=== PATIENT | female | born 1925 | race Asian ===

== ENCOUNTER 2017-01-15 20:16 | Emergency (ER) | payer MEDICARE, OTHER ==
[~2017-01-15] VITALS: Ht 160 cm; Wt 54.4 kg
[~2017-01-15 20:16] MED LIST: ASPI-535 PO; ASPI-676; CALC1TAB37 PO; CARV3.1260 PO; CENTSILV PO; FERR324T6 PO; IBAN3DIS2 IV; LORA-441 PO; MECL-113 PO; METO5AMP PO; OLOP5DRO12 OP; OMEP40CA3 PO; VITAMIN D 3
[2017-01-15 20:19] VITALS: Ht 160 cm; Wt 54.4 kg
[2017-01-15] MEDS ORDERED: DONE5TAB7 PO (22:02)
[2017-01-15] MEDS ORDERED: OMEP20CA16 PO (22:02)
[2017-01-15] MEDS ORDERED: TRIA15CR55 TOP (22:03)
[2017-01-15] MEDS ORDERED: PENT400T2 PO (22:03)
--- NOTE | 2017-01-15 22:12 | ERD ---
ER Documentation Chief Complaint Chief Complaint left leg pain, swelling redness HPI The patient is a 89-year-old female, presenting to the ER because of left leg wound. She is a very poor historian and unable to tell me how long she has had it, complains of pain, denies any trauma. She denies fever, chills, neck pain, chest pain, abdominal pain. She does not smoke nor drink Past medical history: Hypertension, mitral regurgitation, depression, GERD, history of breast cancer, aortic stenosis, anxiety Past surgical history right mastectomy ROS All systems reviewed and are negative except as per history of present illness. Medications Home Meds Active Scripts Acetaminophen* (Tylenol*) 325 Mg Tablet, 2 TAB PO Q6 Y for PAIN AND OR ELEVATED TEMP, #20 TAB Prov:ELI MIRANDA MD 01/16/17 Clindamycin Hcl* (Clindamycin Hcl*) 300 Mg Capsule, 300 MG PO QID for 10 Days, CAP Prov:ELI MIRANDA MD 01/16/17 Reported Medications Triamcinolone Acetonide* (Kenalog*) 0.1%-15GM Cr, 1 APPLIC TOP BID, #1 TUB 01/15/17 Pentoxifylline* (Pentoxifylline*) 400 Mg Tablet.sa, 400 MG PO DAILY, TAB 01/15/17 Donepezil* (Donepezil*) 5 Mg Tablet, 5 MG PO DAILY, #30 TAB 01/15/17 Omeprazole* (Omeprazole*) 20 Mg Capsule.dr, 20 MG PO DAILY, #30 CAP 01/15/17 Aspirin Ec (Aspir 81) 81 Mg Tablet.dr, 81 MG PO DAILY, TAB 10/29/13 Calcium Citrate/Vitamin D3 (Citracal + D Caplet) 1 Each Tablet, 1 EACH PO BID 03/26/12 Discontinued Reported Medications Meclizine Hcl (Travel Sickness) 25 Mg Tab.chew, PO Q8H Y for NOTE, TAB.CHEW 10/29/13 Lorazepam* (Ativan*) 0.5 Mg Tablet, PO BID Y for ANXIETY, TAB 10/29/13 Metoprolol Tartrate* (Lopressor* Inj) 5 Mg/5 Ml Ampul, 25 MG PO BID 10/29/13 [Vitamin D 3] No Conflict Check, 199903/26/12 Olopatadine* (Patanol* Ophth) 5 Ml Drops, 5 ML OP Y 03/26/12 Omeprazole* (Prilosec*) 40 Mg Capsule.dr, 40 MG PO DAILY 03/26/12 Ferrous Sulfate (Ferrous Sulfate) 324 Mg Tabsr, 325 MG PO BID 03/26/12 Multivitamins/Minerals (Centrum Silver) 1 Tab Tab, 1 TAB PO DAILY 03/26/12 Carvedilol* (Carvedilol*) 3.125 Mg Tablet, 3.125 MG PO BID 03/26/12 Ibandronate Sodium (Boniva) 3 Mg/3 Ml/Box Syringekit, 3 MG IV EVERY 3 MONTHS 03/26/12 Aspirin (Frank Child) 81 Mg Chew 05/31/11 Allergies Allergies: Coded Allergies: No Known Allergy (Unverified , 01/15/17) PMhx/Soc History of Surgery: Yes (right mastectomy) Anesthesia Reaction: No Hx Neurological Disorder: No Hx Respiratory Disorders: No Hx Cardiac Disorders: Yes (HTN,MITRAL REGURGITATION) Hx Psychiatric Problems: Yes (depression) Hx Miscellaneous Medical Probl: Yes (gerd, osteoporosis, OA, diverticulosis, breast CA, dep, aortic stenosis) Hx Alcohol Use: No Hx Substance Use: No Hx Tobacco Use: No Smoking Status: Never smoker Physical Exam Vitals Vital Signs Date Time Temp Pulse Resp B/P Pulse Ox O2 Delivery O2 Flow Rate FiO2 01/15/17 23:20 98.2 79 21 115/62 98 Room Air 01/15/17 21:20 99.0 75 20 120/63 99 Room Air 01/15/17 20:19 99.0 85 20 128/60 100 Physical Exam Const: No acute distress. Head: Atraumatic. Eyes: Normal Conjunctiva. ENT: Normal External Ears, Nose and Mouth. Neck: Full range of motion. No meningismus. Resp: Clear to auscultation bilaterally. Cardio: Regular rate and rhythm. Abd: Soft, non distended, normal bowel sounds, non tender. Skin: No petechiae or rashes. Back: No midline or flank tenderness. Ext: Left leg with erythema, minimally warm to touch, mild bilateral calf tenderness. Neur: Awake and alert. No focal deficit Psych: Normal Mood and Affect. Result Diagram: 01/15/17 6614 01/15/17 9421 Results 24 hrs Laboratory Tests Test 01/15/17 23:03 01/15/17 23:58 White Blood Count 5.210^3/ul Red Blood Count 3.4210^6/ul Hemoglobin 11.2g/dl Hematocrit 34.4% Mean Corpuscular Volume 100.6fl Mean Corpuscular Hemoglobin 32.7pg Mean Corpuscular Hemoglobin Concent 32.6g/dl Red Cell Distribution Width 14.4% Platelet Count 65973^3/UL Mean Platelet Volume 11.1fl Neutrophils % 71.7% Lymphocytes % 19.5% Monocytes % 6.7% Eosinophils % 1.3% Basophils % 0.4% Nucleated Red Blood Cells % 0.0/100WBC Neutrophils # 3.810^3/ul Lymphocytes # 1.010^3/ul Monocytes # 0.410^3/ul Eosinophils # 0.110^3/ul Basophils # 0.010^3/ul Nucleated Red Blood Cells # 0.010^3/ul Prothrombin Time 12.6Sec Prothrombin Time Ratio 1.0 INR International Normalized Ratio 0.94 Activated Partial Thromboplast Time 29.9Sec Sodium Level 144mmol/L Potassium Level 3.9mmol/L Chloride Level 107mmol/L Carbon Dioxide Level 27mmol/L Anion Gap 14 Blood Urea Nitrogen 14mg/dl Creatinine 0.77mg/dl Glucose Level 130mg/dl Calcium Level 9.5mg/dl Current Medications Medications (Trade) Dose Ordered Sig/Jagdish Route PRN Reason Start Time Stop Time Status Last Admin Dose Admin Ondansetron HCl (Zofran Odt) 4 mg ONCE STAT ODT 01/16/17 00:30 01/16/17 00:32 DC 01/16/17 00:38 Acetaminophen/ Hydrocodone Bitart ([place] (5/325)) 1 tab ONCE ONCE PO 01/16/17 00:30 01/16/17 00:32 DC 01/16/17 00:38 Clindamycin HCl (Cleocin) 300 mg ONCE ONCE PO 01/16/17 01:30 01/16/17 01:31 Procedures/[place] [address] Radiology Main Line: [phone] DIAGNOSTIC IMAGING REPORT Patient: JIMMY WILSON : 1925 Age: 89 Sex: F MR #: [id number] DOS: 01/15/172242 Ordering MD: ELI MIRANDA MD Location: E/R Room/Bed: PROCEDURE: XR tibia / fibula. CLINICAL INDICATION: Trauma. TECHNIQUE: AP and lateral views of the left tibia/fibula were performed. COMPARISON: There are no similar studies submitted for comparison. FINDINGS: There is normal bone mineralization.There is no acute fracture or dislocation.No osseous lesion is identified. IMPRESSION: No acute fracture or subluxation. RPTAT: HIKT .Bry Baez MD, Date Time Electronically viewed and signed by .Bry Baez MD, MD on 01/16/2017 00:55 .T/ CC: ELI MIRANDA MD [place] [address] Radiology Main Line: [phone] DIAGNOSTIC IMAGING REPORT Patient: JIMMY WILSON : 1925 Age: 89 Sex: F MR #: [id number] DOS: 01/15/172242 Ordering MD: ELI MIRANDA MD Location: E/R Room/Bed: PROCEDURE: US bilateral lower extremity venous Doppler CLINICAL INDICATION: Bilateral swelling TECHNIQUE: Multiple sonographic images of the bilateral lower extremity deep venous system was obtained utilizing grayscale, color-flow, compressive sonography and Doppler imaging with augmentation. COMPARISON: There are no similar studies submitted for comparison. FINDINGS: There is normal compressibility and flow within the left common femoral, superficial femoral, popliteal, and calf veins. There is normal compressibility and flow within the right common femoral, superficial femoral, popliteal, and calf veins. IMPRESSION: No evidence of DVT within the lower extremities. RPTAT: HIKT .Bry Baez MD, MD Date Time Electronically viewed and signed by .Bry Baez MD, MD on 01/15/2017 23:18 .T/ CC: ELI MIRANDA MD MEDICAL MAKING DECISION: The patient is a 89-year-old female, presenting with acute left leg cellulitis. She was treated with [place] 5 mg p.o. for pain, Zofran ODT for nausea and clindamycin for cellulitis with good response. The differential diagnoses considered include but are not limited to cellulitis , abscess, necrotizing fasciitis, DVT Departure Diagnosis: Primary Impression: Cellulitis of leg, left Additional Impression: Anemia Condition: Good Comments She was discharged with clindamycin and Tylenol I discussed the findings with the patient. I advised the patient to follow-up with the primary physician in about 1-2 days, sooner if needed and return if any concern. Disclaimer: Inadvertent spelling and grammatical errors are likely due to EHR/ dictation software use and do not reflect on the overall quality of patient care. Also, please note that the electronic time recorded on this note does not necessarily reflect the actual time of the patient encounter. ELI MIRANDA MD Jan 15, 2017 22:12
--- NOTE | 2017-01-15 22:12 | ERD ---
ER Documentation Chief Complaint Chief Complaint left leg pain, swelling redness HPI The patient is a 89-year-old female, presenting to the ER because of left leg wound. She is a very poor historian and unable to tell me how long she has had it, complains of pain, denies any trauma. She denies fever, chills, neck pain, chest pain, abdominal pain. She does not smoke nor drink Past medical history: Hypertension, mitral regurgitation, depression, GERD, history of breast cancer, aortic stenosis, anxiety Past surgical history right mastectomy ROS All systems reviewed and are negative except as per history of present illness. Medications Home Meds Active Scripts Acetaminophen* (Tylenol*) 325 Mg Tablet, 2 TAB PO Q6 Y for PAIN AND OR ELEVATED TEMP, #20 TAB Prov:ELI MIRANDA MD 01/16/17 Clindamycin Hcl* (Clindamycin Hcl*) 300 Mg Capsule, 300 MG PO QID for 10 Days, CAP Prov:ELI MIRANDA MD 01/16/17 Reported Medications Triamcinolone Acetonide* (Kenalog*) 0.1%-15GM Cr, 1 APPLIC TOP BID, #1 TUB 01/15/17 Pentoxifylline* (Pentoxifylline*) 400 Mg Tablet.sa, 400 MG PO DAILY, TAB 01/15/17 Donepezil* (Donepezil*) 5 Mg Tablet, 5 MG PO DAILY, #30 TAB 01/15/17 Omeprazole* (Omeprazole*) 20 Mg Capsule.dr, 20 MG PO DAILY, #30 CAP 01/15/17 Aspirin Ec (Aspir 81) 81 Mg Tablet.dr, 81 MG PO DAILY, TAB 10/29/13 Calcium Citrate/Vitamin D3 (Citracal + D Caplet) 1 Each Tablet, 1 EACH PO BID 03/26/12 Discontinued Reported Medications Meclizine Hcl (Travel Sickness) 25 Mg Tab.chew, PO Q8H Y for NOTE, TAB.CHEW 10/29/13 Lorazepam* (Ativan*) 0.5 Mg Tablet, PO BID Y for ANXIETY, TAB 10/29/13 Metoprolol Tartrate* (Lopressor* Inj) 5 Mg/5 Ml Ampul, 25 MG PO BID 10/29/13 [Vitamin D 3] No Conflict Check, 199903/26/12 Olopatadine* (Patanol* Ophth) 5 Ml Drops, 5 ML OP Y 03/26/12 Omeprazole* (Prilosec*) 40 Mg Capsule.dr, 40 MG PO DAILY 03/26/12 Ferrous Sulfate (Ferrous Sulfate) 324 Mg Tabsr, 325 MG PO BID 03/26/12 Multivitamins/Minerals (Centrum Silver) 1 Tab Tab, 1 TAB PO DAILY 03/26/12 Carvedilol* (Carvedilol*) 3.125 Mg Tablet, 3.125 MG PO BID 03/26/12 Ibandronate Sodium (Boniva) 3 Mg/3 Ml/Box Syringekit, 3 MG IV EVERY 3 MONTHS 03/26/12 Aspirin (Frank Child) 81 Mg Chew 05/31/11 Allergies Allergies: Coded Allergies: No Known Allergy (Unverified , 01/15/17) PMhx/Soc History of Surgery: Yes (right mastectomy) Anesthesia Reaction: No Hx Neurological Disorder: No Hx Respiratory Disorders: No Hx Cardiac Disorders: Yes (HTN,MITRAL REGURGITATION) Hx Psychiatric Problems: Yes (depression) Hx Miscellaneous Medical Probl: Yes (gerd, osteoporosis, OA, diverticulosis, breast CA, dep, aortic stenosis) Hx Alcohol Use: No Hx Substance Use: No Hx Tobacco Use: No Smoking Status: Never smoker Physical Exam Vitals Vital Signs Date Time Temp Pulse Resp B/P Pulse Ox O2 Delivery O2 Flow Rate FiO2 01/15/17 23:20 98.2 79 21 115/62 98 Room Air 01/15/17 21:20 99.0 75 20 120/63 99 Room Air 01/15/17 20:19 99.0 85 20 128/60 100 Physical Exam Const: No acute distress. Head: Atraumatic. Eyes: Normal Conjunctiva. ENT: Normal External Ears, Nose and Mouth. Neck: Full range of motion. No meningismus. Resp: Clear to auscultation bilaterally. Cardio: Regular rate and rhythm. Abd: Soft, non distended, normal bowel sounds, non tender. Skin: No petechiae or rashes. Back: No midline or flank tenderness. Ext: Left leg with erythema, minimally warm to touch, mild bilateral calf tenderness. Neur: Awake and alert. No focal deficit Psych: Normal Mood and Affect. Result Diagram: 01/15/17 7043 01/15/17 9145 Results 24 hrs Laboratory Tests Test 01/15/17 23:03 01/15/17 23:58 White Blood Count 5.210^3/ul Red Blood Count 3.4210^6/ul Hemoglobin 11.2g/dl Hematocrit 34.4% Mean Corpuscular Volume 100.6fl Mean Corpuscular Hemoglobin 32.7pg Mean Corpuscular Hemoglobin Concent 32.6g/dl Red Cell Distribution Width 14.4% Platelet Count 12130^3/UL Mean Platelet Volume 11.1fl Neutrophils % 71.7% Lymphocytes % 19.5% Monocytes % 6.7% Eosinophils % 1.3% Basophils % 0.4% Nucleated Red Blood Cells % 0.0/100WBC Neutrophils # 3.810^3/ul Lymphocytes # 1.010^3/ul Monocytes # 0.410^3/ul Eosinophils # 0.110^3/ul Basophils # 0.010^3/ul Nucleated Red Blood Cells # 0.010^3/ul Prothrombin Time 12.6Sec Prothrombin Time Ratio 1.0 INR International Normalized Ratio 0.94 Activated Partial Thromboplast Time 29.9Sec Sodium Level 144mmol/L Potassium Level 3.9mmol/L Chloride Level 107mmol/L Carbon Dioxide Level 27mmol/L Anion Gap 14 Blood Urea Nitrogen 14mg/dl Creatinine 0.77mg/dl Glucose Level 130mg/dl Calcium Level 9.5mg/dl Current Medications Medications (Trade) Dose Ordered Sig/Jagdish Route PRN Reason Start Time Stop Time Status Last Admin Dose Admin Ondansetron HCl (Zofran Odt) 4 mg ONCE STAT ODT 01/16/17 00:30 01/16/17 00:32 DC 01/16/17 00:38 Acetaminophen/ Hydrocodone Bitart ([place] (5/325)) 1 tab ONCE ONCE PO 01/16/17 00:30 01/16/17 00:32 DC 01/16/17 00:38 Clindamycin HCl (Cleocin) 300 mg ONCE ONCE PO 01/16/17 01:30 01/16/17 01:31 Procedures/[place] [address] Radiology Main Line: [phone] DIAGNOSTIC IMAGING REPORT Patient: JIMMY WILSON : 1925 Age: 89 Sex: F MR #: [id number] DOS: 01/15/172242 Ordering MD: ELI MIRANDA MD Location: E/R Room/Bed: PROCEDURE: XR tibia / fibula. CLINICAL INDICATION: Trauma. TECHNIQUE: AP and lateral views of the left tibia/fibula were performed. COMPARISON: There are no similar studies submitted for comparison. FINDINGS: There is normal bone mineralization.There is no acute fracture or dislocation.No osseous lesion is identified. IMPRESSION: No acute fracture or subluxation. RPTAT: HIKT .Bry Baez MD, Date Time Electronically viewed and signed by .Bry Baez MD, MD on 01/16/2017 00:55 .T/ CC: ELI MIRANDA MD [place] [address] Radiology Main Line: [phone] DIAGNOSTIC IMAGING REPORT Patient: JIMMY WILSON : 1925 Age: 89 Sex: F MR #: [id number] DOS: 01/15/172242 Ordering MD: ELI MIRANDA MD Location: E/R Room/Bed: PROCEDURE: US bilateral lower extremity venous Doppler CLINICAL INDICATION: Bilateral swelling TECHNIQUE: Multiple sonographic images of the bilateral lower extremity deep venous system was obtained utilizing grayscale, color-flow, compressive sonography and Doppler imaging with augmentation. COMPARISON: There are no similar studies submitted for comparison. FINDINGS: There is normal compressibility and flow within the left common femoral, superficial femoral, popliteal, and calf veins. There is normal compressibility and flow within the right common femoral, superficial femoral, popliteal, and calf veins. IMPRESSION: No evidence of DVT within the lower extremities. RPTAT: HIKT .Bry Baez MD, MD Date Time Electronically viewed and signed by .Bry Baez MD, MD on 01/15/2017 23:18 .T/ CC: ELI MIRANDA MD MEDICAL MAKING DECISION: The patient is a 89-year-old female, presenting with acute left leg cellulitis. She was treated with [place] 5 mg p.o. for pain, Zofran ODT for nausea and clindamycin for cellulitis with good response. The differential diagnoses considered include but are not limited to cellulitis , abscess, necrotizing fasciitis, DVT Departure Diagnosis: Primary Impression: Cellulitis of leg, left Additional Impression: Anemia Condition: Good Comments She was discharged with clindamycin and Tylenol I discussed the findings with the patient. I advised the patient to follow-up with the primary physician in about 1-2 days, sooner if needed and return if any concern. Disclaimer: Inadvertent spelling and grammatical errors are likely due to EHR/ dictation software use and do not reflect on the overall quality of patient care. Also, please note that the electronic time recorded on this note does not necessarily reflect the actual time of the patient encounter. ELI MIRANDA MD Jan 15, 2017 22:12
--- NOTE | 2017-01-15 22:12 | ERD ---
ER Documentation Chief Complaint Chief Complaint left leg pain, swelling redness HPI The patient is a 89-year-old female, presenting to the ER because of left leg wound. She is a very poor historian and unable to tell me how long she has had it, complains of pain, denies any trauma. She denies fever, chills, neck pain, chest pain, abdominal pain. She does not smoke nor drink Past medical history: Hypertension, mitral regurgitation, depression, GERD, history of breast cancer, aortic stenosis, anxiety Past surgical history right mastectomy ROS All systems reviewed and are negative except as per history of present illness. Medications Home Meds Active Scripts Acetaminophen* (Tylenol*) 325 Mg Tablet, 2 TAB PO Q6 Y for PAIN AND OR ELEVATED TEMP, #20 TAB Prov:ELI MIRANDA MD 01/16/17 Clindamycin Hcl* (Clindamycin Hcl*) 300 Mg Capsule, 300 MG PO QID for 10 Days, CAP Prov:ELI MIRANDA MD 01/16/17 Reported Medications Triamcinolone Acetonide* (Kenalog*) 0.1%-15GM Cr, 1 APPLIC TOP BID, #1 TUB 01/15/17 Pentoxifylline* (Pentoxifylline*) 400 Mg Tablet.sa, 400 MG PO DAILY, TAB 01/15/17 Donepezil* (Donepezil*) 5 Mg Tablet, 5 MG PO DAILY, #30 TAB 01/15/17 Omeprazole* (Omeprazole*) 20 Mg Capsule.dr, 20 MG PO DAILY, #30 CAP 01/15/17 Aspirin Ec (Aspir 81) 81 Mg Tablet.dr, 81 MG PO DAILY, TAB 10/29/13 Calcium Citrate/Vitamin D3 (Citracal + D Caplet) 1 Each Tablet, 1 EACH PO BID 03/26/12 Discontinued Reported Medications Meclizine Hcl (Travel Sickness) 25 Mg Tab.chew, PO Q8H Y for NOTE, TAB.CHEW 10/29/13 Lorazepam* (Ativan*) 0.5 Mg Tablet, PO BID Y for ANXIETY, TAB 10/29/13 Metoprolol Tartrate* (Lopressor* Inj) 5 Mg/5 Ml Ampul, 25 MG PO BID 10/29/13 [Vitamin D 3] No Conflict Check, 199903/26/12 Olopatadine* (Patanol* Ophth) 5 Ml Drops, 5 ML OP Y 03/26/12 Omeprazole* (Prilosec*) 40 Mg Capsule.dr, 40 MG PO DAILY 03/26/12 Ferrous Sulfate (Ferrous Sulfate) 324 Mg Tabsr, 325 MG PO BID 03/26/12 Multivitamins/Minerals (Centrum Silver) 1 Tab Tab, 1 TAB PO DAILY 03/26/12 Carvedilol* (Carvedilol*) 3.125 Mg Tablet, 3.125 MG PO BID 03/26/12 Ibandronate Sodium (Boniva) 3 Mg/3 Ml/Box Syringekit, 3 MG IV EVERY 3 MONTHS 03/26/12 Aspirin (Frank Child) 81 Mg Chew 05/31/11 Allergies Allergies: Coded Allergies: No Known Allergy (Unverified , 01/15/17) PMhx/Soc History of Surgery: Yes (right mastectomy) Anesthesia Reaction: No Hx Neurological Disorder: No Hx Respiratory Disorders: No Hx Cardiac Disorders: Yes (HTN,MITRAL REGURGITATION) Hx Psychiatric Problems: Yes (depression) Hx Miscellaneous Medical Probl: Yes (gerd, osteoporosis, OA, diverticulosis, breast CA, dep, aortic stenosis) Hx Alcohol Use: No Hx Substance Use: No Hx Tobacco Use: No Smoking Status: Never smoker Physical Exam Vitals Vital Signs Date Time Temp Pulse Resp B/P Pulse Ox O2 Delivery O2 Flow Rate FiO2 01/15/17 23:20 98.2 79 21 115/62 98 Room Air 01/15/17 21:20 99.0 75 20 120/63 99 Room Air 01/15/17 20:19 99.0 85 20 128/60 100 Physical Exam Const: No acute distress. Head: Atraumatic. Eyes: Normal Conjunctiva. ENT: Normal External Ears, Nose and Mouth. Neck: Full range of motion. No meningismus. Resp: Clear to auscultation bilaterally. Cardio: Regular rate and rhythm. Abd: Soft, non distended, normal bowel sounds, non tender. Skin: No petechiae or rashes. Back: No midline or flank tenderness. Ext: Left leg with erythema, minimally warm to touch, mild bilateral calf tenderness. Neur: Awake and alert. No focal deficit Psych: Normal Mood and Affect. Result Diagram: 01/15/17 2113 01/15/17 2125 Results 24 hrs Laboratory Tests Test 01/15/17 23:03 01/15/17 23:58 White Blood Count 5.210^3/ul Red Blood Count 3.4210^6/ul Hemoglobin 11.2g/dl Hematocrit 34.4% Mean Corpuscular Volume 100.6fl Mean Corpuscular Hemoglobin 32.7pg Mean Corpuscular Hemoglobin Concent 32.6g/dl Red Cell Distribution Width 14.4% Platelet Count 43113^3/UL Mean Platelet Volume 11.1fl Neutrophils % 71.7% Lymphocytes % 19.5% Monocytes % 6.7% Eosinophils % 1.3% Basophils % 0.4% Nucleated Red Blood Cells % 0.0/100WBC Neutrophils # 3.810^3/ul Lymphocytes # 1.010^3/ul Monocytes # 0.410^3/ul Eosinophils # 0.110^3/ul Basophils # 0.010^3/ul Nucleated Red Blood Cells # 0.010^3/ul Prothrombin Time 12.6Sec Prothrombin Time Ratio 1.0 INR International Normalized Ratio 0.94 Activated Partial Thromboplast Time 29.9Sec Sodium Level 144mmol/L Potassium Level 3.9mmol/L Chloride Level 107mmol/L Carbon Dioxide Level 27mmol/L Anion Gap 14 Blood Urea Nitrogen 14mg/dl Creatinine 0.77mg/dl Glucose Level 130mg/dl Calcium Level 9.5mg/dl Current Medications Medications (Trade) Dose Ordered Sig/Jagdish Route PRN Reason Start Time Stop Time Status Last Admin Dose Admin Ondansetron HCl (Zofran Odt) 4 mg ONCE STAT ODT 01/16/17 00:30 01/16/17 00:32 DC 01/16/17 00:38 Acetaminophen/ Hydrocodone Bitart ([place] (5/325)) 1 tab ONCE ONCE PO 01/16/17 00:30 01/16/17 00:32 DC 01/16/17 00:38 Clindamycin HCl (Cleocin) 300 mg ONCE ONCE PO 01/16/17 01:30 01/16/17 01:31 Procedures/[place] [address] Radiology Main Line: [phone] DIAGNOSTIC IMAGING REPORT Patient: JIMMY WILSON : 1925 Age: 89 Sex: F MR #: [id number] DOS: 01/15/172242 Ordering MD: ELI MIRANDA MD Location: E/R Room/Bed: PROCEDURE: XR tibia / fibula. CLINICAL INDICATION: Trauma. TECHNIQUE: AP and lateral views of the left tibia/fibula were performed. COMPARISON: There are no similar studies submitted for comparison. FINDINGS: There is normal bone mineralization.There is no acute fracture or dislocation.No osseous lesion is identified. IMPRESSION: No acute fracture or subluxation. RPTAT: HIKT .Bry Baez MD, Date Time Electronically viewed and signed by .Bry Baez MD, MD on 01/16/2017 00:55 .T/ CC: ELI MIRANDA MD [place] [address] Radiology Main Line: [phone] DIAGNOSTIC IMAGING REPORT Patient: JIMMY WILSON : 1925 Age: 89 Sex: F MR #: [id number] DOS: 01/15/172242 Ordering MD: ELI MIRANDA MD Location: E/R Room/Bed: PROCEDURE: US bilateral lower extremity venous Doppler CLINICAL INDICATION: Bilateral swelling TECHNIQUE: Multiple sonographic images of the bilateral lower extremity deep venous system was obtained utilizing grayscale, color-flow, compressive sonography and Doppler imaging with augmentation. COMPARISON: There are no similar studies submitted for comparison. FINDINGS: There is normal compressibility and flow within the left common femoral, superficial femoral, popliteal, and calf veins. There is normal compressibility and flow within the right common femoral, superficial femoral, popliteal, and calf veins. IMPRESSION: No evidence of DVT within the lower extremities. RPTAT: HIKT .Bry Baez MD, MD Date Time Electronically viewed and signed by .Bry Baez MD, MD on 01/15/2017 23:18 .T/ CC: ELI MIRANDA MD MEDICAL MAKING DECISION: The patient is a 89-year-old female, presenting with acute left leg cellulitis. She was treated with [place] 5 mg p.o. for pain, Zofran ODT for nausea and clindamycin for cellulitis with good response. The differential diagnoses considered include but are not limited to cellulitis , abscess, necrotizing fasciitis, DVT Departure Diagnosis: Primary Impression: Cellulitis of leg, left Additional Impression: Anemia Condition: Good Comments She was discharged with clindamycin and Tylenol I discussed the findings with the patient. I advised the patient to follow-up with the primary physician in about 1-2 days, sooner if needed and return if any concern. Disclaimer: Inadvertent spelling and grammatical errors are likely due to EHR/ dictation software use and do not reflect on the overall quality of patient care. Also, please note that the electronic time recorded on this note does not necessarily reflect the actual time of the patient encounter. ELI MIRANDA MD Jan 15, 2017 22:12
--- NOTE | 2017-01-15 23:18 | RADRPT ---
PROCEDURE: US bilateral lower extremity venous Doppler CLINICAL INDICATION: Bilateral swelling TECHNIQUE: Multiple sonographic images of the bilateral lower extremity deep venous system was obt ained utilizing grayscale, color-flow, compressive sonography and Doppler imaging with augmentation. COMPARISON: There are no similar studies submitted for comparison. FINDINGS: There is normal compressibility and flow within the left common femoral, superficial femoral, poplit eal, and calf veins. There is normal compressibility and flow within the right common femoral, superficial femoral, popli teal, and calf veins. IMPRESSION: No evidence of DVT within the lower extremities. RPTAT: HIKT .Bry Baez MD, MD Date Time Electronically viewed and signed by .Bry Baez MD, MD on 01/15/2017 23:18 .T/
[2017-01-16] MEDS ORDERED: HYDROCODONE/APAP (5/325) TAB PO ONE (00:30)
[2017-01-16] MEDS ORDERED: ONDANSETRON (ODT) 4 MG TAB ODT STA (00:30)
--- NOTE | 2017-01-16 00:55 | RADRPT ---
PROCEDURE: XR tibia / fibula. CLINICAL INDICATION: Trauma. TECHNIQUE: AP and lateral views of the left tibia/fibula were performed. COMPARISON: There are no similar studies submitted for comparison. FINDINGS: There is normal bone mineralization.There is no acute fracture or dislocation.No osseous lesion is i dentified. IMPRESSION: No acute fracture or subluxation. RPTAT: HIKT .Bry Baez MD, MD Date Time Electronically viewed and signed by .Bry Baez MD, MD on 01/16/2017 00:55 .T/
[2017-01-16] MEDS ORDERED: CLIN-73 PO (01:10)
[2017-01-16] MEDS ORDERED: ACET325T33 PO (01:10)
[2017-01-16] MEDS ORDERED: CLINDAMYCIN 300 MG CAP PO ONE (01:30)
[2017-01-16 02:15] VITALS: BP 121/55; PULSE 69; RESP 17; TEMP 97.5
== END 2017-01-16 02:30 | disposition home or self-care (01) ==
LOC: E/R 20:16
DX: L03.116 Cellulitis of left lower limb (principal); D64.9 Anemia, unspecified; I10 Essential (primary) hypertension; Z85.3 Personal history of malignant neoplasm of breast; Z79.82 Long term (current) use of aspirin
CPT/HCPCS: 36415; 73590; 80048; 85025; 85610; 85730; 93971

== ENCOUNTER 2017-03-25 21:50 | Inpatient (IN) | END 2017-04-01 19:15 | DRG 603 ==